=== PATIENT | female | born 1975 | race Caucasian/White ===

== ENCOUNTER 2022-09-19 15:39 | Outpatient (CLI) | payer OTHER | END 2022-09-19 15:40 | disposition home or self-care (01) | LOC: CSHRAD 15:39 | PROVIDERS: ATTEND Student in an Organized Health Care Education/Training Program | DX: R06.02 Shortness of breath (principal) | CPT/HCPCS: 71046 ==

== ENCOUNTER 2022-09-29 12:16 | Outpatient (CLI) | payer OTHER | END 2022-09-29 12:17 | disposition home or self-care (01) | LOC: CSHCP 12:16 | PROVIDERS: ATTEND Student in an Organized Health Care Education/Training Program | DX: R06.02 Shortness of breath (principal); J44.9 Chronic obstructive pulmonary disease, unspecified; R94.2 Abnormal results of pulmonary function studies | CPT/HCPCS: 94060; 94760 ==

== ENCOUNTER 2023-12-18 10:58 | Outpatient (CLI) | payer OTHER ==
[~2023-12-18 10:58] MED LIST: Iopamidol 300 61% 100 ML VIAL FS ONE
== END 2023-12-18 10:59 | disposition home or self-care (01) ==
LOC: CSHCT 10:58
PROVIDERS: ATTEND Student in an Organized Health Care Education/Training Program
DX: M32.9 Systemic lupus erythematosus, unspecified (principal); R06.02 Shortness of breath; R91.1 Solitary pulmonary nodule
CPT/HCPCS: 71260; Q9967